=== PATIENT | female | born 1980 | race Caucasian/White ===

== ENCOUNTER 2021-09-19 19:04 | Emergency (ER) | payer BC ==
--- OUTSIDE RECORDS SUMMARY | 2021-09-19 19:06 | XMS REPORT | Continuity of Care Document ---
:1980 Author Organization [facility] t Address [address] [place] [address] Dr. Guillen [address] [place] [id number] Care Team Providers Name Role Phone ONDO Attending Clinician Unavailable SISSON_C Attending Clinician Unavailable SISSON_C Admitting Clinician Unavailable Payers Payer Name Policy Type Policy Number Effective Date Expiration Date S nad[place] [id number] 2018 00:00:00 Problems This patient has no known problems. Allergies, Adverse Reactions, Alerts This patient has no known allergies or adverse reactions. Medications This patient has no known medications. Procedures This patient has no known procedures. Encounters Start End Encounter Admission Attending Care Care Encounter Source Date/Time Date/Time Type Type Clinicians Facility Department ID 2021-03-22 2021-03-22 Outpatient [facility]YSZ[facility] [id number] [place] 00:00:00 00:00:00 BERRY Nasc[facility] 2020-10-26 2020-10-26 Outpatient SISSON_C [facility] [id number] [place] 03:23:00 03:23:00 [id number] Results This patient has no known results.
[2021-09-19] MEDS ORDERED: PROMETHAZINE INJ 25 MG/ML AMP ONE (20:13)
[2021-09-19] MEDS ORDERED: MEPERIDINE HCL 25 MG/ML SYR ONE (20:14)
[2021-09-19 20:53] LABS: Absolute Lymphocytes (CBC) 1.1 K/uL (0.7-4.9); Hematocrit 37.8 % (36.0-45.0); Lymphocytes % 17.2 % (15.3-44.8); MPV 8.7 fL (7.6-11.3); RBC Red Blood Cell Count 4.23 M/uL (3.86-4.86)
[2021-09-19 20:57] LABS: Potassium 4.1 mmol/L (3.5-5.1)
--- NOTE | 2021-09-19 21:13 | RAD REPORT ---
EXAM DESCRIPTION: CT - [id number] - 09/19/2021 8:54 pm CLINICAL HISTORY: Trauma, head and neck injury. Seizure;Pain COMPARISON: No comparisons TECHNIQUE: Axial 5 mm thick images of the head were obtained. Axial 2 mm thick images of the cervical spine were obtained with sagittal and coronal reconstruction images generated and reviewed. All CT scans are performed using dose optimization technique as appropriate and may include automated exposure control or mA/KV adjustment according to patient size. FINDINGS: CT HEAD WITHOUT CONTRAST: No acute hemorrhage, hydrocephalus or extra-axial collection is identified.No areas of brain edema or midline shift. The paranasal sinuses and mastoids are clear.The calvarium is intact. CT CERVICAL SPINE WITHOUT CONTRAST: No fracture or subluxation.No prevertebral soft tissues swelling is identified. IMPRESSION: No acute intracranial or cervical spine findings.
--- NOTE | 2021-09-19 21:38 | EDPHYS ---
Physician Documentation [facility] Name: Aury Mclean Age: 41 yrs Sex: Female : 1980 Arrival Date: 09/19/2021 Time: 19:23 Bed 17 Private MD: HALINA Physician Cody Weiss HPI: 09/19 20:06 This 41 yrs old Female presents to ER via EMS with complaints of Seizure. pm1 20:06 The patient presents after having a single isolated seizure. Character of seizure(s): pm1 Incontinence: incontinent of bladder, unknown. Seizure onset: just prior to arrival. Context: the seizure(s) was witnessed, unknown, seizure occurred at [employer] while shopping. Seizure Hx: Cause: Tramadol per her neurologist and not taking seizure medications, Usual frequency: occurs in her sleep primarily per , Seizure medications: none. Associated injury: Other: contusion to scalp and small abrasion to right upper lip. EMS care: zofran prior to arrival. Current symptoms: headache. The patient has experienced similar episodes in the past, multiple times. The patient has not recently seen a physician. Historical: - Allergies: 19:27 Bactrim; tk1 19:27 Cipro; tk1 - Home Meds: 19:27 None [Active]; tk1 - PMHx: 19:27 restless leg syndrome; Seizure; tk1 - Immunization history:: Adult Immunizations up to date, Client reports having NOT received the Covid vaccine. - Social history:: Smoking status: Patient denies any tobacco usage or history of. ROS: 20:06 Constitutional: Negative for fever, chills, and weight loss. pm1 20:06 Cardiovascular: Negative for chest pain, palpitations, and edema, Respiratory: Negative for shortness of breath, cough, wheezing, and pleuritic chest pain, Abdomen/GI: Negative for abdominal pain, nausea, vomiting, diarrhea, and constipation, Back: Negative for injury and pain, MS/Extremity: Negative for injury and deformity, Skin: Negative for injury, rash, and discoloration. 20:06 Neck: Positive for pain. 20:06 Skin: Positive for abrasion(s), of the mouth, contusion to scalp. 20:06 Neuro: Positive for headache, seizure activity. 20:06 All other systems are negative. pm1 Exam: 20:06 Constitutional: This is a well developed, well nourished patient who is awake, alert, pm1 and in no acute distress. Head/Face: Normocephalic, atraumatic. 20:06 Skin: Warm, dry with normal turgor. Normal color with no rashes, no lesions, and no evidence of cellulitis. MS/ Extremity: Pulses equal, no cyanosis. Neurovascular intact. Full, normal range of motion. 20:06 Eyes: Exam is negative for acute changes, Periorbital structures: appear normal, Pupils: no acute changes, Extraocular movements: no acute changes. 20:06 ENT: Exam is negative for acute changes, Mouth: Lips: small abrasion present to right upper lip, Oral mucosa: normal, pink and intact, moist. 20:06 Neck: External neck: tenderness, that is mild, of the left trapezius and right trapezius, C-spine: vertebral tenderness, is not appreciated. 20:06 Cardiovascular: Exam negative for acute changes, Rate: normal, Rhythm: regular, Pulses: no pulse deficits are appreciated. 20:06 Respiratory: Exam negative for acute changes, respiratory distress, shortness of breath. 20:06 Neuro: Exam negative for acute changes, Orientation: is normal, Mentation: is normal, Motor: is normal, moves all fours, Sensation: no obvious gross deficits. Vital Signs: 19:23 BP 139 / 89 LA Supine (auto/reg); Pulse 92 MON; Resp 18 S; Pulse Ox 99% on R/A; Pain tk1 0/10; 20:33 BP 139 / 90 LA Supine (auto/reg); Pulse 82 LA; Resp 16 S; Temp 98.6(O); Pulse Ox 100% ; tk1 Pain 6/10; 21:28 BP 128 / 90 LA Supine (auto/reg); Pulse 80 MON; Resp 18 S; Pulse Ox 99% on R/A; Pain tk1 5/10; MDM: 19:48 Patient medically screened. ana m 21:33 Data reviewed: vital signs. Data interpreted: Pulse oximetry: on room air is 99 %. pm1 Interpretation: normal. Counseling: I had a detailed discussion with the patient and/or guardian regarding: the historical points, exam findings, and any diagnostic results supporting the discharge/admit diagnosis, lab results, radiology results, the need for outpatient follow up, to return to the emergency department if symptoms worsen or persist or if there are any questions or concerns that arise at home. 09/19 20:06 Order name: CBC with Diff; Complete Time: 21:09 pm1 09/19 20:06 Order name: BMP; Complete Time: 21:09 pm1 09/19 20:06 Order name: CT Head C Spine; Complete Time: 21:33 pm1 09/19 20:06 Order name: EKG; Complete Time: 20:06 pm1 09/19 20:06 Order name: EKG - Nurse/Tech; Complete Time: 20:49 pm1 Administered Medications: 20:14 Drug: Phenergan (promethazine) 12.5 mg Route: IVP; Rate: bolus; Infused Over: 2 mins; tk1 Site: left antecubital; 21:29 Follow up: Response: Nausea is decreased tk1 20:15 Drug: Demerol (meperidine) 25 mg Route: IVP; Rate: bolus; Infused Over: 2 mins; Site: tk1 left antecubital; 21:30 Follow up: Response: Pain is decreased tk1 20:25 Drug: NS 0.9% 1000 ml Route: IV; Rate: 1000 ml; Infused Over: 1 hrs; Site: left tk1 antecubital; Delivery: Primary tubing; 21:30 Follow up: Response: No adverse reaction; IV Status: Completed infusion; IV Intake: tk1 1000ml Disposition: 09/20 08:59 Co-signature as Attending Physician, Cody Weiss MD I agree with the assessment and ana m plan of care. Disposition Summary: 09/19/21 21:37 Discharge Ordered Location: Home pm1 Problem: new pm1 Symptoms: have improved pm1 Condition: Stable pm1 Diagnosis - Other seizures pm1 Followup: pm1 - With: Emergency Department - When: As needed - Reason: Worsening of condition Followup: pm1 - With: Private Physician - When: 2 - 3 days - Reason: Recheck today's complaints, Continuance of care, Re-evaluation by your physician Followup: pm1 - With: Bryon Fink MD - When: 2 - 3 days - Reason: Recheck today's complaints, Continuance of care, Re-evaluation by your physician Discharge Instructions: - Discharge Summary Sheet pm1 - Seizure, Adult pm1 Forms: - Medication Reconciliation Form pm1 - Thank You Letter pm1 - Antibiotic Education pm1 - Prescription Opioid Use pm1 Signatures: Dispatcher [employer] EDMS Cody Weiss MD MD cha Marinas, Patrick, NP SWITCHING OPERATOR pm1 Claudia Belle tk1
--- NOTE | 2021-09-19 21:38 | ER ---
Nurse's Notes [facility] Name: Aury Mclean Age: 41 yrs Sex: Female : 1980 Arrival Date: 09/19/2021 Time: 19:23 Bed 17 Private MD: Diagnosis: Other seizures Presentation: 09/19 19:23 Chief complaint: EMS states: Patient had a seizure at [employer] while shopping. EMS states, tk1 patient post ictal when arrived. Vomited x1, Zofran 4mg IVP given in route. Patient incontinent of urine on site. Coronavirus screen: Vaccine status: Patient reports being unvaccinated. Client denies travel out of the [place] in the last 14 days. At this time, the client does not indicate any symptoms associated with coronavirus-19. Ebola Screen: Patient negative for fever greater than or equal to 101.5 degrees Fahrenheit, and additional compatible Ebola Virus Disease symptoms Patient denies exposure to infectious person. Patient denies travel to an Ebola-affected area in the 21 days before illness onset. No symptoms or risks identified at this time. Initial Sepsis Screen: Does the patient meet any 2 criteria? No. Patient's initial sepsis screen is negative. Does the patient have a suspected source of infection? No. Patient's initial sepsis screen is negative. Risk Assessment: Do you want to hurt yourself or someone else? Patient reports no desire to harm self or others. Onset of symptoms was September 19, 2021 at 18:45. 19:23 Method Of Arrival: EMS: [facility] tk1 19:23 Acuity: NIKKY 3 tk1 Triage Assessment: 19:27 General: Appears comfortable, well groomed, well developed, well nourished, Behavior is tk1 calm, cooperative, appropriate for age, flat. Pain: Denies pain. Neuro: Level of Consciousness is awake, alert, obeys commands, Oriented to person, place, time, situation, Appropriate for age Transplant Case Manager are equal bilaterally Moves all extremities. Full function Gait is steady, Speech is normal, Facial symmetry appears normal, Pupils are PERRLA, Reports. Cardiovascular: No deficits noted. Denies chest pain, nausea. Cardiovascular: Capillary refill < 3 seconds in bilateral fingers Clubbing of nail beds is absent. Respiratory: No deficits noted. Airway is patent is compromised Breath sounds are clear. GI: No deficits noted. No signs and/or symptoms were reported involving the gastrointestinal system. : No deficits noted. No signs and/or symptoms were reported regarding the genitourinary system. Derm: No deficits noted. No signs and/or symptoms reported regarding the dermatologic system. Musculoskeletal: No deficits noted. No signs and/or symptoms reported regarding the musculoskeletal system. Historical: - Allergies: 19:27 Bactrim; tk1 19:27 Cipro; tk1 - Home Meds: 19:27 None [Active]; tk1 - PMHx: 19:27 restless leg syndrome; Seizure; tk1 - Immunization history:: Adult Immunizations up to date, Client reports having NOT received the Covid vaccine. - Social history:: Smoking status: Patient denies any tobacco usage or history of. Screenin:31 Abuse screen: Denies threats or abuse. Denies injuries from another. Nutritional tk1 screening: No deficits noted. Tuberculosis screening: No symptoms or risk factors identified. Fall Risk None identified. Assessment: 19:31 Reassessment: See triage assessment. tk1 20:33 Reassessment: No changes from previously documented assessment. Patient and/or family tk1 updated on plan of care and expected duration. Pain level reassessed. Patient is alert, oriented x 3, equal unlabored respirations, skin warm/dry/pink. 21:28 Reassessment: Patient appears in no apparent distress at this time. No changes from tk1 previously documented assessment. Patient and/or family updated on plan of care and expected duration. Pain level reassessed. Patient is alert, oriented x 3, equal unlabored respirations, skin warm/dry/pink. 22:02 Reassessment: D/C per MD order. Discharge instructions given to patient and . tk1 Verbalized understanding. Vital Signs: 19:23 BP 139 / 89 LA Supine (auto/reg); Pulse 92 MON; Resp 18 S; Pulse Ox 99% on R/A; Pain tk1 0/10; 20:33 BP 139 / 90 LA Supine (auto/reg); Pulse 82 LA; Resp 16 S; Temp 98.6(O); Pulse Ox 100% ; tk1 Pain 6/10; 21:28 BP 128 / 90 LA Supine (auto/reg); Pulse 80 MON; Resp 18 S; Pulse Ox 99% on R/A; Pain tk1 5/10; ED Course: 19:23 Patient arrived in ED. tk1 19:23 Claudia Belle is Primary Nurse. tk1 19:27 Triage completed. tk1 19:31 Patient has correct armband on for positive identification. Bed in low position. Call tk1 light in reach. Side rails up X2. Pulse ox on. NIBP on. Warm blanket given. Paper scrubs. 19:31 No provider procedures requiring assistance completed. Maintain EMS IV. Dressing tk1 intact. Site clean \T\ dry. Gauge \T\ site: 20g left AC. 19:43 Aniket Velasquez NP is PHCP. pm1 19:43 Cody Weiss MD is Attending Physician. pm1 20:25 BMP Sent. tk1 20:25 CBC with Diff Sent. tk1 20:54 CT Head C Spine In Process Unspecified. EDMS 21:28 IV is patent, with fluids infusing freely. tk1 21:38 Bryon Fink MD is Referral Physician. pm1 22:02 IV discontinued, intact, bleeding controlled, No redness/swelling at site. Pressure tk1 dressing applied. Administered Medications: 20:14 Drug: Phenergan (promethazine) 12.5 mg Route: IVP; Rate: bolus; Infused Over: 2 mins; tk1 Site: left antecubital; 21:29 Follow up: Response: Nausea is decreased tk1 20:15 Drug: Demerol (meperidine) 25 mg Route: IVP; Rate: bolus; Infused Over: 2 mins; Site: tk1 left antecubital; 21:30 Follow up: Response: Pain is decreased tk1 20:25 Drug: NS 0.9% 1000 ml Route: IV; Rate: 1000 ml; Infused Over: 1 hrs; Site: left tk1 antecubital; Delivery: Primary tubing; 21:30 Follow up: Response: No adverse reaction; IV Status: Completed infusion; IV Intake: tk1 1000ml Intake: 21:30 IV: 1000ml; Total: 1000ml. tk1 Outcome: 21:37 Discharge ordered by . pm1 22:02 Discharged to home via wheelchair. tk1 22:02 Condition: stable 22:02 Discharge instructions given to patient, family, Instructed on discharge instructions, follow up and referral plans. Demonstrated understanding of instructions, follow-up care. 22:04 Patient left the ED. tk1 Signatures: Dispatcher [employer] EDMS Aniket Velasquez, SARAHI EXTENSION PROFESSOR pm1 Claudia Belle tk1
[2021-09-19 23:39] VITALS: TEMP 98.6
[2021-09-19 23:40] VITALS: BP 128/90; O2SAT 99
--- NOTE | 2021-09-20 10:15 | EKG ---
Test Date: 2021-09-19 Test Time: 20:46:41 Hydraulic Pile Hammer Operator: STACI, MEASUREMENT RESULTS: Intervals: Rate: 82 [place]: 104 QRSD: 80 QT: 350 QTc: 408 [place]: P: 20 [place]: 104 QRS: 38 T: 52 INTERPRETIVE STATEMENTS: Sinus rhythm with short [place] Otherwise normal ECG Compared to ECG 10/02/2011 11:52:40 Short [place] interval now present Electronically Signed On 09-20-21 10:14:29 DIRECTOR SMB SALES by Julio Jauregui
== END 2021-09-19 22:04 | disposition home or self-care (01) ==
LOC: ER 19:04
DX: G40.89 Other seizures (principal); Z88.1 Allergy status to other antibiotic agents
CPT/HCPCS: 96361; 93005; 85025; 80048; 36415; 70450; 72125; 96375; 96374; 99284; J2550; J2175

== ENCOUNTER 2022-09-23 00:44 | Emergency (ER) | payer BC ==
--- OUTSIDE RECORDS SUMMARY | 2022-09-23 00:55 | XMS REPORT | Continuity of Care Document ---
:1980 Author Organization [facility] t Address [address] [place] [address] Care Team Providers Name Role Phone Tommy RUBIN, Ben Devries Primary Care Physician Ida RUBIN, Stephane Malhotra Attending Clinician JAME IVAN Attending Clinician Unavailable Berry Tran MD Attending Clinician Luciano Roa MD Attending Clinician Susan Knight MA Attending Clinician Unavailable SISSON_Sylvester Attending Clinician Unavailable SISSON_Sylvester Admitting Clinician Unavailable Payers Payer Name Policy Type Policy Number Effective Date Expiration Date S nadine BCBS 2 [id number] 2020 00:00:00 [place] [id number] 2018 00:00:00 Problems Condition Condition Condition Status Onset Resolution Last Treating Co mments Source Name Details Category Date Date Treatment Clinician Date New onset New onset Disease Active 2018-08 Met hodi seizure seizure 0-04 st 00:00: Hospita 00 l Allergies, Adverse Reactions, Alerts Allergy Allergy Status Severity Reaction(s) Onset Inactive Treating Comm ents Source Name Type Date Date Clinician Levetira Propensi Active Rash 2018-08 Method i cetam ty to 0-04 st adverse 00:00: Hospita reaction 00 l s to drug Pregabal Propensi Active Swelling Meth ke in ty to 3 st adverse 00:00: Hospita reaction 00 l s to drug Sulfamet Propensi Active Method i hoxazole ty to 3-27 st -Trimeth adverse 00:00: Hospita oprim reaction 00 l s to drug Family History Family Member Diagnosis Comments Start Date Stop Date Source Natural mother Heart disease [facility] Social History Social Habit Start Date Stop Date Quantity Comments Source Alcohol intake 2022-09-20 2022-09-20 Current [facility] 00:00:00 00:00:00 non-drinker of Hospital alcohol (finding) Tobacco use and 2022-08-15 2022-08-15 Smokeless tobacco [facility] exposure 00:00:00 00:00:00 non-user Hospital Sex Assigned At [birth year] [facility] 00:[facility] 00:[facility]:00 Hospital Smoking Status Start Date Stop Date Source Never smoked tobacco [facility] Medications Ordered Filled Start Stop Current Ordering Indication Dosage Frequency Signature Comments Components Source Medication Medication Date Date Medication? Clinician (SIG) Name Name omeprazole Yes 20mg Q24H Take 1 Metho di (PriLOSEC) 2-[address] 20 MG 10:54: (20 mg Hospita capsule 10 total) by l mouth daily as needed. acetaminoph Yes 500mg Q6H Take 1 Met hodi en 2-[address] (TYLENOL) 10:54: (500 mg Hospi ta 500 MG 10 total) by l tablet mouth every 6 (six) hours as needed for mild pain (Headache) . midazolam Yes Administer Me thodi (Nayzilam) 2-[address] 5 mg/spray 00:00: (5 mg Hospit a (0.1 mL) 00 dose) into l spray,non-a one erosol nostril. Administer one additional spray (5 mg dose) into the opposite nostril after 10 minutes if seizure cluster continues. lacosamide 2022- Yes 100mg Q.5D Take 1 Met hodi (VIMPAT) 2-15 11-[address] 100 mg 00:00: 05:59 (100 mg Hospita tablet 00 :00 total) by l tablet mouth 2 (two) times a day for 270 days. clonAZEPAM 2022- Yes 1mg Q24H Take 1 Meth ke (KlonoPIN) 2-15 08-15 tablet (1 st 1 MG 00:00: 04:59 mg total) Hospita disintegrat 00 :00 by mouth l ing tablet daily as needed for seizures for up to 180 days. clonAZEPAM 2022- No 1mg Q24H Take 1 Meth ke (KlonoPIN) 2-15 -15 tablet (1 st 1 MG 00:00: 00:00 mg total) Hospita disintegrat 00 :00 by mouth l ing tablet daily as needed for seizures for up to 180 days. buprenorphi Yes [id number] 450ug Q.[id number] Apply 1 Methodi ne HCL 09-14 [id number] applicatio s t ([facility]) 00:00: 3D n (450 mcg Ho spita 450 mcg 00 total) to l film cheek 3 (three) times a day .chronic pain. buprenorphi 2022- No [id number] 300ug Q.5D Apply 1 Methodi ne 09-[address] ([facility]) 00:00: 00:00 n (300 mcg H ospita 300 mcg 00 :00 total) to l film buccal cheek 2 film (two) times a day .chronic pain. [place]renor[place] 2022- [place] [id number] 300ug Q.5D Apply 1 Methodi ne 08-[address] ([facility]) 00:00: 00:00 n (300 mcg H ospita 300 mcg 00 :00 total) to l film buccal cheek 2 film (two) times a day .chronic pain. ALPRAZolam 0 2023- Yes .5mg Q.5D Take 1 Meth ke (XANAX) 0.5 08-[address] MG tablet 00:00: 05:59 (0.5 mg Hosp kevin 00 :00 total) by l mouth 2 (two) times a day. traMADoL Yes [id number] 1{tbl} QD Take 1 Meth ke 200 mg -[address] tablet, ER 00:00: mouth Hospit a multiphase 00 daily l 24 hr .chronic pain. gabapentin 2021-08 Yes 1200mg Q.[id number] Take 2 Methodi (NEURONTIN) 2-[id number] 600 mg 00:00: 3D (1,200 mg Hospit a tablet 00 total) by l mouth 3 (three) times a day. Titrate as directed up to 3 pills at night traMADoL 2021-08- [place] [id number] 50mg Q6H Take 1 Metho di (ULTRAM) 50 08-09-30 tablet (50 s t mg tablet 00:00: 00:00 mg total) Ho spita 00 :00 by mouth l every 6 (six) hours as needed for moderate pain .chronic pain. traMADol [place] 2022- [place] [id number] 300mg QD Take 1 M ethodi (ULTRAM-ER) 05-[address] 300 mg 24 00:00: 00:00 (300 mg Hosp kevin hr tablet 00 :00 total) by l mouth daily .chronic pain. zolpidem CR 2022- No 12.5mg QD Take 1 M ethodi (Ambien CR) 04-[address] 12.5 MG CR 00:00: 04:59 (12.5 mg Ho spita tablet 00 :00 total) by l mouth nightly as needed for sleep. traMADoL 2021- No [id number] 50mg Q6H Take 1 Metho di (ULTRAM) 50 04-17 tablet (50 s t mg tablet 00:00: 00:00 mg total) Ho spita 00 :00 by mouth l every 6 (six) hours as needed for moderate pain .chronic pain. zolpidem CR 2021- No 12.5mg QD Take 1 M ethodi (Ambien CR) 04-[address] 12.5 MG CR 00:00: 00:00 (12.5 mg Ho spita tablet 00 :00 total) by l mouth nightly as needed for sleep. ALPRAZolam 2022- No .5mg Q.5D Take 1 Meth ke (XANAX) 0.5 03-[address] MG tablet 00:00: 00:00 (0.5 mg Hosp kevin 00 :00 total) by l mouth 2 (two) times a day. traMADol ER 2021- No [id number] 300mg QD Take 1 M ethodi (ULTRAM-ER) 03-[address] 300 mg 24 00:00: 00:00 (300 mg Hosp kevin hr tablet 00 :00 total) by l mouth daily .chronic pain. gabapentin 2021- No 1200mg QD Take 2 Me thodi (NEURONTIN) 01-[address] 600 mg 00:00: 00:00 (1,200 mg Hospi ta tablet 00 :00 total) by l mouth daily. Titrate as directed up to 3 pills at night traMADol [place] 2021- No [id number] 300mg QD Take 1 M ethodi (ULTRAM-ER) 12-[address] 300 mg 24 00:00: 00:00 (300 mg Hosp kevin hr tablet 00 :00 total) by l mouth daily .chronic pain. traMADoL 2022- No [id number] 50mg Q6H Take 1 Metho di (ULTRAM) 50 12-05 tablet (50 s t mg tablet 00:00: 00:00 mg total) Ho spita 00 :00 by mouth l every 6 (six) hours as needed for moderate pain or severe pain .chronic pain. traMADoL 2021- [place] [id number] 50mg Q6H Take 1 Metho di (ULTRAM) 50 12-05 tablet (50 s t mg tablet 00:00: 00:00 mg total) Ho spita 00 :00 by mouth l every 6 (six) hours as needed for moderate pain .chronic pain. gabapentin No 800mg QD Take 1 Met hodi (Neurontin) 09-[address] 800 mg 00:00: 00:00 (800 mg Hospita tablet 00 :00 total) by l mouth nightly. Titrate up to 3 pills/nigh t ALPRAZolam 2021- No .5mg Q.5D Take 1 Meth ke (XANAX) 0.5 09-[address] MG tablet 00:00: 00:00 (0.5 mg Hosp kevin 00 :00 total) by l mouth 2 (two) times a day. traMADol ER 2022- No [id number] 300mg QD Take 1 M ethodi (ULTRAM-ER) 09-[address] 300 mg 24 00:00: 00:00 (300 mg Hosp kevin hr tablet 00 :00 total) by l mouth daily .chronic pain. zolpidem CR No 12.5mg QD Take 1 M ethodi (Ambien CR) 08-31-[address] 12.5 MG CR 00:00: 00:00 (12.5 mg Ho spita tablet 00 :00 total) by l mouth nightly as needed for sleep. traMADoL 2020-08 No [id number] 50mg Q6H Take 1 Metho di (ULTRAM) 50 09-21-29 tablet (50 s t mg tablet 00:00: 00:00 mg total) Ho spita 00 :00 by mouth l every 6 (six) hours as needed for moderate pain .chronic pain. gabapentin 2020-08 No 600mg Q.[id number] Take 2 Methodi (Neurontin) 09-[id number] 300 mg 00:00: 00:00 3D (600 mg Hospita capsule 00 :00 total) by l mouth 3 (three) times a day. Titrate as directed up to 4 po qhs ondansetron Yes 4mg Q8H Take 1 Meth ke (Zofran) 4 -13 tablet (4 st MG tablet 00:00: mg total) Hos claudette 00 by mouth l every 8 (eight) hours as needed for nausea or vomiting. traMADol ER 2021- No [id number] 300mg QD Take 1 M ethodi (ULTRAM-ER) 7- 05-[address] 300 mg 24 00:00: 00:00 (300 mg Hosp kevin hr tablet 00 :00 total) by l mouth daily .chronic pain. Vital Signs Vital Name Observation Time Observation Value Comments Source Systolic blood 2022-09-20 16:51:00 120 mm[Hg] Method ist Hospital pressure Diastolic blood 2022-09-20 16:51:00 83 mm[Hg] Metho dist Hospital pressure Heart rate 2022-09-20 16:51:00 93 /min [facility] Body temperature 2022-09-20 16:51:00 36.39 Maryanne Meth odist [facility] Body height 2022-09-20 16:51:00 160 cm [facility] Body weight 2022-09-20 16:51:00 74.072 kg [facility] BMI 2022-09-20 16:51:00 28.93 kg/m2 [facility] Procedures This patient has no known procedures. Plan of Care Planned Activity Planned Date Details Comments Source Future Scheduled 2022-09-22 COVID-19 VACCINE [facility] Test 12:58:12 (#1) [code = COVID-19 VACCINE (#1)] Future Scheduled 2022-09-22 Hepatitis C [facility] Test 12:58:12 screening (procedure) [code = 464147849] Future Scheduled 2022-09-22 Screening for [facility] Test 12:58:12 malignant neoplasm of cervix (procedure) [code = 222931869] Future Scheduled 2022-09-22 BREAST CANCER [facility] Test 12:58:12 SCREENING [code = BREAST CANCER SCREENING] Future Scheduled 2022-09-22 INFLUENZA VACCINE Method [facility] Test 12:58:12 [code = INFLUENZA VACCINE] Encounters Start End Encounter Admission Attending Care Care Encounter Source Date/Time Date/Time Type Type Clinicians Facility Department ID 2022-09-20 2022-09-20 Office Stephane Roblero 1.2.840.1 [id number] Methodi 11:00:00 11:50:09 Visit Daemperatriz 99220.1.[address] 3.430.2.7 Hospit a .3.045078 l .8 2022-09-20 2022-09-20 Travel 1.2.840.1 1.2.729.346 [id number] Methodi 00:00:00 00:00:[address] 3.430.2.7 0.2.7.3.698 Ho spita .3.782191 084.8 l .8 2022-09-20 2022-09-20 Outpatient STEPHANE ROLBERO [facility] [id number] [place] 00:00:00 00:00:[address] 2022-09-18 2022-09-18 Outpatient CARIDAD IVAN [id number] [place] 09:00:00 09:00:00 JAME winter 2022-09-04 2022-09-04 Refill Ondo, 1.2.840.1 [id number] Methodi 00:00:00 00:00:[address] [place] 3.430.2.7 Hospit a .3.382188 l .8 2022-08-15 2022-08-16 Telemedici On, 1.2.840.1 [id number] Methodi 16:30:00 07:02:16 ne Berry 56694.1.[address] [place] 3.430.2.7 Hospit a .3.843280 l .8 2022-08-15 2022-08-16 Outpatient ON, [facility] [id number] [address] [place] [address] 00:00:00 00:00:00 BERRY [address] 2022-08-15 2022-08-15 Refill Janina, 1.2.840.1 [id number] Methodi 00:00:00 00:00:[address] Luc[address]456.1.[address] 3.430.2.7 Hospit a .3.094490 l .8 2022-08-15 2022-08-15 Refill Janina, 1.2.840.1 [id number] 21 [id number] Methodi 00:00:00 00:00:[address] Luciano Ward [address]277.1.[address] 3.430.2.7 Hospit a .3.977020 l .8 2022-08-14 2022-08-14 Travel 1.2.840.1 1.2.165.683 1565 [id number] Methodi 00:00:00 00:00:[address] 3.430.2.7 0.2.7.3.698 Ho spita .3.239893 084.8 l .8 2022-08-14 2022-08-14 Orders Ondo, 1.2.840.1 [id number] Methodi 00:00:00 00:00:00 Only Berry 68099.1.[address] [place] 3.430.2.7 Hospit a .3.424233 l .8 2022-08-11 2022-08-11 Telephone Knight, 1.2.840.1 [id number] Methodi 00:00:00 00:00:[address] 3.430.2.7 Hospit a .3.105262 l .8 2022-06-08 2022-06-08 Refill Ondo, 1.2.840.1 [id number] 2060 Methodi 00:00:00 00:00:[address] [place] 3.430.2.7 Hospit a .3.658924 l .8 2022-04-28 2022-04-28 Refill Alexzevrobiner, 1.2.840.1 [id number] 21 [id number] Methodi 00:00:00 00:00:[address] Luciano [address]774.1.[address] 3.430.2.7 Hospit a .3.491771 l .8 2022-04-28 2022-04-28 Telephone Knight, 1.2.840.1 [id number] [id number] Methodi 00:00:00 00:00:[address] 3.430.2.7 Hospit a .3.219715 l .8 2022-04-17 2022-04-17 Refill Ondo, 1.2.840.1 [id number] 8129 Methodi 00:00:00 00:00:[address] [place] 3.430.2.7 Hospit a .3.794557 l .8 2022-03-05 2022-03-05 Refill Ondo, 1.2.840.1 [id number] 7146 Methodi 00:00:00 00:00:[address] [place] 3.430.2.7 Hospit a .3.417873 l .8 2021-12-16 2021-12-16 Refill Ondo, 1.2.840.1 [id number] 5877 Methodi 00:00:00 00:00:[address] [place] 3.430.2.7 Hospit a .3.606819 l .8 2021-12-15 2021-12-15 Refill Ondo, 1.2.840.1 [id number] 7767 Methodi 00:00:00 00:00:[address] [place] 3.430.2.7 Hospit a .3.215477 l .8 2021-12-05 2021-12-05 Refill Ondo, 1.2.840.1 [id number] 3756 Methodi 00:00:00 00:00:[address] [place] 3.430.2.7 Hospit a .3.771515 l .8 2021-12-02 2021-12-02 Refill Ondo, 1.2.840.1 [id number] 7988 Methodi 00:00:00 00:00:[address] [place] 3.430.2.7 Hospit a .3.029624 l .8 2021-09-28 2021-09-28 Telephone Ondo, 1.2.840.1 [id number] [id number] Methodi 14:30:00 15:16:24 Consult Berry 43795.1.[address] [place] 3.430.2.7 Hospit a .3.258539 l .8 2021-09-28 2021-09-28 Travel 1.2.840.1 1.2.004.620 [id number] [id number] Methodi 00:00:00 00:00:[address] 3.430.2.7 0.2.7.3.698 spita .3.173566 084.8 l .8 2021-09-28 2021-09-28 Outpatient ONDO, [facility] [id number] [place] 00:00:00 00:00:00 BERRY [place]don [facility] i st 2021-03-22 2021-03-22 Outpatient ON, [facility] [id number] 642 [place] 00:00:00 00:00:00 BERRY Nascimento Method i st 2020-10-26 2020-10-26 Outpatient MEGAN CONTRA [facility] 07498- 2020 [place] 03:23:00 03:23:00 0323 Commun i ty Hospita l Clinics Results This patient has no known results.
[2022-09-23] MEDS ORDERED: PROMETHAZINE INJ 25 MG/ML AMP ONE (02:30)
[2022-09-23] MEDS ORDERED: KETOROLAC 30 MG/ML INJ ONE (02:30)
[2022-09-23] MEDS ORDERED: NA CHLORIDE 0.9% 1,000 ML ONE (02:30)
[2022-09-23] MEDS ORDERED: NA CHLORIDE 0.9% 50 ML ONE (02:31)
[2022-09-23 02:49] LABS: Hematocrit 32.1 % (36.0-45.0); Lymphocytes % 36.9 % (15.3-44.8); MCV 85.8 fL (80-100); MPV 8.6 fL (7.6-11.3); RBC Red Blood Cell Count 3.74 M/uL (3.86-4.86)
[2022-09-23 02:55] LABS: Urine Blood 2+ (Negative); Urine Glucose Negative (Negative); Urine Protein Negative (Negative)
[2022-09-23 03:05] LABS: Albumin 3.4 g/dL (3.4-5.0); Bilirubin Total 0.2 mg/dL (0.2-1.0); Potassium 3.7 mmol/L (3.5-5.1); Protein, Total 6.2 g/dL (6.4-8.2)
[2022-09-23 03:27] LABS: Urine Bacteria <20 /HPF (<20); Urine Mucus Slight /HPF (None Seen)
--- NOTE | 2022-09-23 05:58 | ER ---
Nurse's Notes [facility] Name: Aury Mclean Age: 42 yrs Sex: Female : 1980 Arrival Date: 09/23/2022 Time: 00:48 Bed 8 Private MD: Diagnosis: Other ovarian cysts;Pelvic pain Presentation: 09/23 01:17 Chief complaint: Patient states: she was seen at [facility] several days ago with a bb ruptured ovarian cyst but the pain is just getting worse now she is having vaginal bleeding as well and she is nauseous. Coronavirus screen: At this time, the client does not indicate any symptoms associated with coronavirus-19. Ebola Screen: No symptoms or risks identified at this time. Initial Sepsis Screen: Does the patient meet any 2 criteria? No. Patient's initial sepsis screen is negative. Does the patient have a suspected source of infection? No. Patient's initial sepsis screen is negative. Risk Assessment: Do you want to hurt yourself or someone else? Patient reports no desire to harm self or others. Onset of symptoms was September 23, 2022. 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 - Social history:: Smoking status: Patient denies any tobacco usage or history of. Screenin:42 [facility] ED Fall Risk Assessment (Adult) Score/Fall Risk Level 0 - 2 = Low Risk. Abuse as6 screen: Denies threats or abuse. Denies injuries from another. Nutritional screening: No deficits noted. Tuberculosis screening: No symptoms or risk factors identified. Assessment: 02:40 General: Appears in no apparent distress. Behavior is calm, cooperative. Pain: as6 Complains of pain in right lower quadrant Quality of pain is described as crampy. GI: Reports lower abdominal pain, nausea. : Reports vaginal bleeding that is spotty. Vital Signs: 01:17 BP 131 / 92; Pulse 103; Resp 16 S; Temp 98.7(O); Pulse Ox 99% on R/A; Weight 72.57 kg bb (R); Height 5 ft. 2 in. (157.48 cm) (R); Pain 9/10; 01:17 Body Mass Index 29.26 (72.57 kg, 157.48 cm) bb ED Course: 00:48 Patient arrived in ED. jj6 01:10 Va Yuen MD is Attending Physician. sd2 01:20 Triage completed. bb 01:20 Arm band placed on Patient placed in an exam room, on a stretcher. Family accompanied bb patient. 01:35 Tasneem Diaz is Primary Nurse. tw5 02:42 Placed in gown. Bed in low position. Call light in reach. Side rails up X 1. as6 02:42 Inserted saline lock: 20 gauge in left antecubital area, using aseptic technique. Blood as6 collected. 04:07 US Pelvis Complete In Process Unspecified. EDMS 06:17 No provider procedures requiring assistance completed. IV discontinued, intact, tw5 bleeding controlled, No redness/swelling at site. Pressure dressing applied. Administered Medications: 02:39 Drug: Ketorolac 15 mg Route: IVP; Site: left antecubital; as6 06:17 Follow up: Response: No adverse reaction tw5 02:39 Drug: Phenergan (promethazine) 12.5 mg Route: IVP; Site: left antecubital; as6 06:17 Follow up: Response: No adverse reaction tw5 02:39 Drug: NS 0.9% 1000 ml Route: IV; Rate: 1 bolus; Site: left antecubital; as6 Medication: 06:18 VIS not applicable for this client. tw5 Outcome: 05:57 Discharge ordered by . sd2 06:18 Discharged to home ambulatory. tw5 06:18 Condition: stable 06:18 Discharge instructions given to patient, Instructed on discharge instructions, medication usage, Demonstrated understanding of instructions, follow-up care, medications. 06:18 Patient left the ED. tw5 Signatures: Dispatcher [employer] EDMS Fozia Garcia RN RN bb Wood, Tiffany tw5 Aury Rowe jj6 Francis Desai RN RN as6 Va Yuen MD MD sd2 Corrections: (The following items were deleted from the chart) 01:21 01:20 Allergies: Morphine; bb bb
--- NOTE | 2022-09-23 05:58 | EDPHYS ---
Physician Documentation [facility] Name: Aury Mclean Age: 42 yrs Sex: Female : 1980 Arrival Date: 09/23/2022 Time: 00:48 Bed 8 Private MD: ED Physician Va Yuen HPI: 09/23 02:28 This 42 yrs old Female presents to ER via Ambulatory with complaints of Pelvic Pain, sd2 Vaginal Bleeding. 02:28 42-year-old female presents with chief complaint of lower abdominal/pelvic pain and sd2 vaginal bleeding. She reports that her pain initially started 1 week ago and she was seen at [facility] where she was diagnosed with a ruptured ovarian cyst on her right side. She reports she has not yet been able to follow-up with an MANAGER POST and is continuing to have pain on her right-hand side despite taking ibuprofen and Motrin at home. She denies any associated fevers, vomiting, diarrhea or urinary symptoms. She was placed on Levaquin at her last visit as well for UTI.. MANAGER POST: 01:20 LMP 09/09/2022 bb Historical: - Allergies: 01:20 Bactrim; bb 01:20 Cipro; bb 01:20 Zofran; bb 01:20 Codeine; bb 01:20 tramadol; bb - PMHx: 01:20 restless leg syndrome; Seizure; bb - Immunization history:: Client reports having NOT received the Covid vaccine. - Social history:: Smoking status: Patient denies any tobacco usage or history of. ROS: 02:28 Constitutional: Negative for fever, chills, and weight loss, Eyes: Negative for injury, sd2 pain, redness, and discharge, Cardiovascular: Negative for chest pain, palpitations, and edema, Respiratory: Negative for shortness of breath, cough, wheezing. 02:28 : Negative for dysuria, urinary frequency, hesitancy, urgency and hematuria. MS/Extremity: Negative for injury and deformity, Skin: Negative for injury, rash, and discoloration. 02:28 Abdomen/GI: Positive for nausea, Negative for vomiting, diarrhea. Exam: 02:28 Constitutional: This is a well developed, well nourished patient who is awake, alert, sd2 and in no acute distress. Head/Face: Normocephalic, atraumatic. Eyes: EOMI, normal conjunctiva bilaterally Chest/axilla: Normal chest wall appearance and motion. Nontender with no deformity. Cardiovascular: Regular rate and rhythm with a normal S1 and S2. No gallops, murmurs, or rubs. 2+ distal pulses. Respiratory: Lungs have equal breath sounds bilaterally, clear to auscultation and percussion. No rales, rhonchi or wheezes noted. No increased work of breathing, no retractions or nasal flaring. Abdomen/GI: Soft, non-tender, with normal bowel sounds. No guarding or rebound. No evidence of tenderness throughout. Skin: Warm, dry with normal turgor. Normal color with no rashes, no lesions, and no evidence of cellulitis. MS/ Extremity: Pulses equal, no cyanosis. Neurovascular intact. Full, normal range of motion. Ambulatory without difficulty. Psych: Awake, alert, with orientation to person, place and time. Behavior, mood, and affect are within normal limits. Vital Signs: 01:17 BP 131 / 92; Pulse 103; Resp 16 S; Temp 98.7(O); Pulse Ox 99% on R/A; Weight 72.57 kg bb (R); Height 5 ft. 2 in. (157.48 cm) (R); Pain 9/10; 01:17 Body Mass Index 29.26 (72.57 kg, 157.48 cm) bb MDM: 01:25 Patient medically screened. sd2 02:28 Differential diagnosis: , threatened miscarriage, fibroids, ovarian cyst among sd2 others. Data reviewed: vital signs, nurses notes. 05:55 Data reviewed: lab test result(s), radiologic studies. I considered the following sd2 discharge prescriptions or medication management in the emergency department Medications were administered in the Emergency Department. See MAR. Historians other than the Patient: Daughter/Son: provides further hx. Care significantly affected by the following chronic conditions: Epilepsy. Counseling: I had a detailed discussion with the patient and/or guardian regarding: the historical points, exam findings, and any diagnostic results supporting the discharge/admit diagnosis, lab results, radiology results, the need for outpatient follow up, to return to the emergency department if symptoms worsen or persist or if there are any questions or concerns that arise at home. ED course: Labs and imaging reviewed. Labs reassuring. US with nonvisualization of ovaries but patient's pain is well controlled with benign abdominal exam throughout stay. Doubt torsion or significant ovarian pathology at this time. Pt advised to take NSAIDs and continue with plan for follow up with PCP and OBGYN. Verbalizes understanding of discharge plan and strict return precautions at this time.. 09/23 02:19 Order name: Urine Microscopic Only; Complete Time: 03:32 sd2 09/23 02:47 Order name: Comprehensive Metabolic Panel; Complete Time: 03:32 EDMS 09/23 02:47 Order name: Lipase; Complete Time: 03:32 EDMS 09/23 02:19 Order name: Urine Dipstick-Ancillary (obtain specimen); Complete Time: 03:03 sd2 09/23 02:19 Order name: US Pelvis Complete sd2 09/23 02:47 Order name: CBC with Automated Diff; Complete Time: 03:32 EDMS 09/23 02:55 Order name: Urine Dipstick-Ancillary; Complete Time: 03:32 EDMS 09/23 03:06 Order name: Urine --Ancillary (enter results); Complete Time: 03:32 ds4 09/23 02:19 Order name: Urine Test (obtain specimen); Complete Time: 03:03 sd2 Administered Medications: 02:39 Drug: Ketorolac 15 mg Route: IVP; Site: left antecubital; as6 06:17 Follow up: Response: No adverse reaction tw5 02:39 Drug: Phenergan (promethazine) 12.5 mg Route: IVP; Site: left antecubital; as6 06:17 Follow up: Response: No adverse reaction tw5 02:39 Drug: NS 0.9% 1000 ml Route: IV; Rate: 1 bolus; Site: left antecubital; as6 Disposition Summary: 09/23/22 05:57 Discharge Ordered Location: Home sd2 Problem: new sd2 Symptoms: have improved sd2 Condition: Stable sd2 Diagnosis - Other ovarian cysts sd2 - Pelvic pain sd2 Followup: sd2 - With: Private Physician - When: 2 - 3 days - Reason: Recheck today's complaints, Continuance of care, Re-evaluation by your physician Discharge Instructions: - Discharge Summary Sheet sd2 - Ovarian Cyst sd2 - Pelvic Pain, Female sd2 Forms: - Medication Reconciliation Form sd2 - Thank You Letter sd2 - Antibiotic Education sd2 - Prescription Opioid Use sd2 Prescriptions: - Anaprox DS 550 mg Oral Tablet - take 1 tablet by ORAL route every 12 hours As needed; 20 tablet; Refills: 0, sd2 Product Selection Permitted Signatures: Dispatcher [employer] EDFozia Matthew RN RN bb Francis Desai RN RN as6 Va Yuen MD MD sd2 Tasneem Diaz tw5 Corrections: (The following items were deleted from the chart) 01:21 01:20 Allergies: Morphine; bb bb 03:22 02:55 CBC+H.LAB.BRZ ordered. EDMS EDMS 03:22 02:55 COMPREHENSIVE METABOLIC PANEL+C.LAB.BRZ ordered. EDMS EDMS 03:23 02:55 LIPASE+C.LAB.BRZ ordered. EDMS EDMS
[2022-09-23 07:01] VITALS: BP 131/92; TEMP 98.7; O2SAT 99
--- NOTE | 2022-09-24 17:41 | RAD REPORT ---
EXAM DESCRIPTION: US - Pelvis Complete - 09/23/2022 4:05 am CLINICAL HISTORY: 42 years Female ABD PAIN, LMP: Not provided TECHNIQUE: Ultrasound imaging of the pelvis was performed transabdominally on 09/23/2022 at 3: 55 AM. COMPARISON: CT abdomen and pelvis performed on 09/18/2022 FINDINGS: The uterus is grossly normal in size, shape and echogenicity and measures 8.1 x 4.0 x 4.8 cm. The endometrial complex measures 0.8 cm in thickness. There is no endometrial fluid. There ar e a couple of small cervical nabothian cysts. The ovaries are not well-visualized on this examination. There is no free fluid in the pelvis. No def inite adnexal mass lesions are seen. The bladder is well distended and smooth in contour. IMPRESSION: 1. Grossly normal transabdominal sonographic evaluation of the uterus. 2. Nonvisualization of the ovaries on this examination. Electronically signed by: Rhoda Gordon DO 09/23/2022 5:47 AM DRAFTING TECHNICIAN Due to temporary technical issues with the PACS/Fluency reporting system, reports are being signed by the in house radiologists without review as a courtesy to insure prompt reporting. The interpreting radiologist is fully responsible for the content of the report.
== END 2022-09-23 06:18 | disposition home or self-care (01) ==
LOC: ER 00:44
DX: N83.299 Other ovarian cyst, unspecified side (principal); Z88.1 Allergy status to other antibiotic agents; Z88.5 Allergy status to narcotic agent
CPT/HCPCS: 85025; 36415; 81025; 83690; 80053; 76856; 96375; 96374; 99284; J2550; J7030; 81003; 81015